=== PATIENT | male | born 1970 | race African-American/Black ===

== ENCOUNTER → 2021-01-24 | Outpatient (CLI) | payer MEDICAID ==
--- NOTE | 2021-01-24 17:30 | RAD ---
Bilateral lower extremity ABIs. INDICATION: Poor circulation of the extremities. TECHNIQUE AND FINDINGS: Bilateral lower extremity ABIs are performed. The NATHALIE on the right is 1.0 and on the left 1.1. These are normal. IMPRESSION: 1. Normal bilateral lower extremity ABIs. Electronically signed by: Paul Torres MD (01/24/2021 5:28 PM) [id number]
== END ==
LOC: US 14:39
PROVIDERS: ATTEND Internal Medicine
DX: R09.89 Other specified symptoms and signs involving the circulatory and respiratory systems (principal)
CPT/HCPCS: 93922

== ENCOUNTER → 2021-06-03 | Outpatient (CLI) | payer MEDICAID ==
[~2021-06-03] MED LIST: AMLO-187 PO; LEVE100020 PO
--- NOTE | 2021-06-03 14:19 | RAD ---
EXAMINATION: XR KNEE 3 VIEWS_RT CLINICAL HISTORY: Acute right knee pain. TECHNIQUE: XR KNEE 3 VIEWS_RT Number of Images/Views: 3 COMPARISON: None FINDINGS: Moderate medial compartment narrowing. Tricompartmental small marginal osteophytes. No acute fracture . Tiny infrapatellar enthesophyte. No significant joint effusion. IMPRESSION: Moderate degenerative changes right knee medial compartment. Electronically signed by: Thierry Weiner DO (06/03/2021 2:17 PM) [id number]
== END ==
LOC: RAD 11:06
PROVIDERS: ATTEND Internal Medicine
DX: M17.11 Unilateral primary osteoarthritis, right knee (principal); M25.761 Osteophyte, right knee; M25.861 Other specified joint disorders, right knee
CPT/HCPCS: 73562

== ENCOUNTER 2021-06-14 08:33 | Inpatient (IN) | payer MEDICAID ==
[~2021-06-14] VITALS: Ht 185.4 cm; Wt 119.0 kg
[2021-06-14] MEDS ORDERED: IPRATRPIUM/ALBUTEROL 0.5/2.5MG 3 ML NEBU. NEB ONE (09:15)
[2021-06-14] MEDS ORDERED: methylPREDNISolone SOD SUCC PF 125 MG/2 ML VIAL. IV ONE (09:15)
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
[2021-06-14] MEDS ORDERED: ALBUTEROL SULFATE 2.5 MG/3 ML NEBU. CONT NEB ONE (09:30)
--- NOTE | 2021-06-14 09:33 | RAD ---
EXAM: XR CHEST 2V 06/14/2021 9:20 AM CLINICAL INDICATION: Cough for 10 days COMPARISON: None TECHNIQUE: PA and lateral views of the chest FINDINGS: The heart and mediastinum are normal. Lungs are well-expanded and clear. No consolidatio n, pleural effusion, or pneumothorax. Pulmonary vascularity is normal. There is a 1.2 cm radiopaque density projecting over L1. Surgical clips in the upper abdomen. IMPRESSION: No acute cardiopulmonary abnormality. Electronically signed by: Layla Cabrera MD (06/14/2021 9:31 AM) [id number]
[2021-06-14 09:50] LABS: BASO % 0 % (0-3); EOS # 0.1 x10^3/uL (0.0-0.7); EOS % 2 % (0-3); HEMATOCRIT 43.1 % (39.0-53.0); HEMOGLOBIN 14.8 g/dL (13.0-17.5); LYMPH # 1.6 x10^3/uL (1.0-4.8); LYMPH % 23 % (24-48); MEAN CORPUSCULAR HEMOGLOBIN 32 pg (25-35); MEAN CORPUSCULAR HGB CONC 34 g/dL (31-37); MEAN CORPUSCULAR VOLUME 94 fL (79-100); MONO # 0.8 x10^3/uL (0.0-1.1); MONO % 11 % (0-9); NEUT # 4.4 x10^3/uL (1.8-7.7); NEUT % 64 % (31-73); PLATELET COUNT 263 x10^3/uL (140-400); RED CELL DISTRIBUTION WIDTH 14.4 % (11.5-14.5); WHITE BLOOD COUNT 6.9 x10^3/uL (4.0-11.0)
[2021-06-14 09:58] LABS: CALCIUM 9.2 mg/dL (8.5-10.1); CREATININE 1.1 mg/dL (0.7-1.3); GFR 85.7
[2021-06-14 10:06] LABS: INFLUENZA A PATIENT NEGATIVE (NEGATIVE); INFLUENZA B PATIENT NEGATIVE (NEGATIVE)
[2021-06-14] MEDS ORDERED: AZITHROMYCIN 500 MG in IV NORMAL SALINE 250ML 250 ML IV ONE (10:30)
[2021-06-14] MEDS ORDERED: ACETAMINOPHEN 325 MG TABLET. PO PRN (11:00)
[2021-06-14] MEDS: IV NORMAL SALINE 1000ML BAG 1,000 ML IV SCH ×2 (11:00→21:00)
[2021-06-14] MEDS ORDERED: IV NORMAL SALINE 1000ML BAG 1,000 ML IV ONE (11:00)
[2021-06-14] MEDS ORDERED: METOCLOPRAMIDE HCL 10 MG/2 ML VIAL. IVP ONE (11:30)
[2021-06-14] MEDS ORDERED: diphenhydrAMINE 50 MG/ML VIAL IVP ONE (11:30)
[2021-06-14 14:00] VITALS: BP 131/70
[2021-06-14] MEDS ORDERED: AMLO-187 PO (17:25)
[2021-06-14] MEDS ORDERED: LEVE100020 PO (17:25)
--- NOTE | 2021-06-14 17:42 | PDOC ---
PULMONARY PROGRESS NOTES DATE: 06/14/21 TIME: 17:41 Vitals Vital Signs Date Time Temp Pulse Resp B/P (MAP) Pulse Ox O2 Delivery O2 Flow Rate FiO2 06/14/21 15:44 Room Air 06/14/21 14:00 98.2 89 20 131/70 (90) 93 98.2 Labs Laboratory Tests Test 06/14/21 09:30 White Blood Count 6.9 x10^3/uL (4.0-11.0) Red Blood Count 4.60 x10^6/uL (4.30-5.70) Hemoglobin 14.8 g/dL (13.0-17.5) Hematocrit 43.1 % (39.0-53.0) Mean Corpuscular Volume 94 fL (79-100) Mean Corpuscular Hemoglobin 32 pg (25-35) Mean Corpuscular Hemoglobin Concent 34 g/dL (31-37) Red Cell Distribution Width 14.4 % (11.5-14.5) Platelet Count 263 x10^3/uL (140-400) Neutrophils (%) (Auto) 64 % (31-73) Lymphocytes (%) (Auto) 23 % (24-48) Monocytes (%) (Auto) 11 % (0-9) Eosinophils (%) (Auto) 2 % (0-3) Basophils (%) (Auto) 0 % (0-3) Neutrophils # (Auto) 4.4 x10^3/uL (1.8-7.7) Lymphocytes # (Auto) 1.6 x10^3/uL (1.0-4.8) Monocytes # (Auto) 0.8 x10^3/uL (0.0-1.1) Eosinophils # (Auto) 0.1 x10^3/uL (0.0-0.7) Basophils # (Auto) 0.0 x10^3/uL (0.0-0.2) Sodium Level 137 mmol/L (136-145) Potassium Level 3.0 mmol/L (3.5-5.1) Chloride Level 96 mmol/L (98-107) Carbon Dioxide Level 30 mmol/L (21-32) Anion Gap 11 (6-14) Blood Urea Nitrogen 12 mg/dL (8-26) Creatinine 1.1 mg/dL (0.7-1.3) Estimated GFR (Cockcroft-Gault) 85.7 Glucose Level 135 mg/dL (70-99) Calcium Level 9.2 mg/dL (8.5-10.1) Influenza Type A Antigen Negative (NEGATIVE) Influenza Type B Antigen Negative (NEGATIVE) SARS-CoV-2 Antigen (Rapid) Positive (NEGATIVE) Laboratory Tests Test 06/14/21 09:30 White Blood Count 6.9 x10^3/uL (4.0-11.0) Red Blood Count 4.60 x10^6/uL (4.30-5.70) Hemoglobin 14.8 g/dL (13.0-17.5) Hematocrit 43.1 % (39.0-53.0) Mean Corpuscular Volume 94 fL (79-100) Mean Corpuscular Hemoglobin 32 pg (25-35) Mean Corpuscular Hemoglobin Concent 34 g/dL (31-37) Red Cell Distribution Width 14.4 % (11.5-14.5) Platelet Count 263 x10^3/uL (140-400) Neutrophils (%) (Auto) 64 % (31-73) Lymphocytes (%) (Auto) 23 % (24-48) Monocytes (%) (Auto) 11 % (0-9) Eosinophils (%) (Auto) 2 % (0-3) Basophils (%) (Auto) 0 % (0-3) Neutrophils # (Auto) 4.4 x10^3/uL (1.8-7.7) Lymphocytes # (Auto) 1.6 x10^3/uL (1.0-4.8) Monocytes # (Auto) 0.8 x10^3/uL (0.0-1.1) Eosinophils # (Auto) 0.1 x10^3/uL (0.0-0.7) Basophils # (Auto) 0.0 x10^3/uL (0.0-0.2) Sodium Level 137 mmol/L (136-145) Potassium Level 3.0 mmol/L (3.5-5.1) Chloride Level 96 mmol/L (98-107) Carbon Dioxide Level 30 mmol/L (21-32) Anion Gap 11 (6-14) Blood Urea Nitrogen 12 mg/dL (8-26) Creatinine 1.1 mg/dL (0.7-1.3) Estimated GFR (Cockcroft-Gault) 85.7 Glucose Level 135 mg/dL (70-99) Calcium Level 9.2 mg/dL (8.5-10.1) Influenza Type A Antigen Negative (NEGATIVE) Influenza Type B Antigen Negative (NEGATIVE) SARS-CoV-2 Antigen (Rapid) Positive (NEGATIVE) Medications Active Scripts Medications Dose Route/Sig Max Daily Dose Days Date Category Amlodipine Besylate 10 Mg Tablet 10 Mg PO DAILY 06/14/21 Reported Keppra (Levetiracetam) 1,000 Mg Tablet 1 Tab PO BID 30 06/14/21 Reported Impression . Reviewed, x-ray reviewed, will check PCR for COVID Full consult to be dictated MICHELLE CHAN MD Jun 14, 2021 17:42
[2021-06-14] MEDS ORDERED: ALBUTEROL SULFATE 8GM INHALER. INH PRN (18:00)
[2021-06-14 19:00] VITALS: BP 121/81
[2021-06-14] MEDS: ALBUTEROL SULFATE 8GM INHALER. INH SCH (20:57)
[2021-06-14] MEDS: guaiFENesin/CODEINE 100mg/10mg 5 ML LIQUID PO PRN (20:57)
[2021-06-14] MEDS: levETIRAcetam 500 MG TABLET PO SCH (20:57)
[2021-06-14] MEDS: IBUPROFEN 400 MG TABLET. PO PRN (20:58)
[2021-06-14 22:41] VITALS: BP 142/93
[2021-06-15] MEDS: ALBUTEROL SULFATE 8GM INHALER. INH SCH ×7 (00:31→23:55)
[2021-06-15 03:00] VITALS: BP 123/81
[2021-06-15] MEDS: IV NORMAL SALINE 1000ML BAG 1,000 ML IV SCH (07:53)
[2021-06-15] MEDS: DEXAMETHASONE SOD PHOS 4 MG/ML VIAL IVP SCH (07:54)
[2021-06-15] MEDS: levETIRAcetam 500 MG TABLET PO SCH ×2 (07:55→20:32)
[2021-06-15 08:10] VITALS: BP 175/92
[2021-06-15] MEDS: guaiFENesin/CODEINE 100mg/10mg 5 ML LIQUID PO PRN ×3 (08:12→20:31)
[2021-06-15] MEDS: POTASSIUM CHLORIDE 10 MEQ TABLET.ER. PO SCH ×3 (08:47→17:11)
--- NOTE | 2021-06-15 09:44 | PDOC ---
PULMONARY PROGRESS NOTES DATE: 06/15/21 TIME: 09:44 Vitals Vital Signs Date Time Temp Pulse Resp B/P (MAP) Pulse Ox O2 Delivery O2 Flow Rate FiO2 06/15/21 08:10 97.8 92 20 175/92 (119) 98 Room Air 97.8 Labs Laboratory Tests Test 06/14/21 09:30 White Blood Count 6.9 x10^3/uL (4.0-11.0) Red Blood Count 4.60 x10^6/uL (4.30-5.70) Hemoglobin 14.8 g/dL (13.0-17.5) Hematocrit 43.1 % (39.0-53.0) Mean Corpuscular Volume 94 fL (79-100) Mean Corpuscular Hemoglobin 32 pg (25-35) Mean Corpuscular Hemoglobin Concent 34 g/dL (31-37) Red Cell Distribution Width 14.4 % (11.5-14.5) Platelet Count 263 x10^3/uL (140-400) Neutrophils (%) (Auto) 64 % (31-73) Lymphocytes (%) (Auto) 23 % (24-48) Monocytes (%) (Auto) 11 % (0-9) Eosinophils (%) (Auto) 2 % (0-3) Basophils (%) (Auto) 0 % (0-3) Neutrophils # (Auto) 4.4 x10^3/uL (1.8-7.7) Lymphocytes # (Auto) 1.6 x10^3/uL (1.0-4.8) Monocytes # (Auto) 0.8 x10^3/uL (0.0-1.1) Eosinophils # (Auto) 0.1 x10^3/uL (0.0-0.7) Basophils # (Auto) 0.0 x10^3/uL (0.0-0.2) Sodium Level 137 mmol/L (136-145) Potassium Level 3.0 mmol/L (3.5-5.1) Chloride Level 96 mmol/L (98-107) Carbon Dioxide Level 30 mmol/L (21-32) Anion Gap 11 (6-14) Blood Urea Nitrogen 12 mg/dL (8-26) Creatinine 1.1 mg/dL (0.7-1.3) Estimated GFR (Cockcroft-Gault) 85.7 Glucose Level 135 mg/dL (70-99) Calcium Level 9.2 mg/dL (8.5-10.1) Influenza Type A Antigen Negative (NEGATIVE) Influenza Type B Antigen Negative (NEGATIVE) SARS-CoV-2 Antigen (Rapid) Positive (NEGATIVE) Medications Active Scripts Medications Dose Route/Sig Max Daily Dose Days Date Category Amlodipine Besylate 10 Mg Tablet 10 Mg PO DAILY 06/14/21 Reported Keppra (Levetiracetam) 1,000 Mg Tablet 1 Tab PO BID 30 06/14/21 Reported Impression . Reviewed, x-ray reviewed, will check PCR for COVID Dictated Acute exacerbation of asthma Doubt COVID-19 MICHELLE CHAN MD Jun 15, 2021 09:44
[2021-06-15 11:00] VITALS: BP 160/79
--- NOTE | 2021-06-15 11:22 | NUR ---
SS following for discharge planning. SS reviewed pt chart and discussed with pt RN. Pt is from home and is currently on room air. COVID19 positive. Pt on IV Decadron. Pulmonology consulted. SS will continue to follow for discharge planning.
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
[2021-06-15] MEDS: CETIRIZINE HCL 10 MG TABLET. PO SCH (14:10)
[2021-06-15] MEDS: FLUTICASONE 50MCG/NASAL SPRAY 16GM BOTTLE. NS SCH (14:10)
[2021-06-15 15:00] VITALS: BP 155/90
[2021-06-15 19:00] VITALS: BP 151/95
[2021-06-15] MEDS: IBUPROFEN 400 MG TABLET. PO PRN (20:32)
[2021-06-15] MEDS ORDERED: MONTELUKAST SODIUM 10 MG TABLET. PO SCH (21:00)
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
[2021-06-15 23:05] VITALS: BP 159/99
[2021-06-16] MEDS: guaiFENesin/CODEINE 100mg/10mg 5 ML LIQUID PO PRN ×2 (02:40→08:42)
[2021-06-16] MEDS: IBUPROFEN 400 MG TABLET. PO PRN (02:40)
[2021-06-16 03:10] VITALS: BP 150/86
[2021-06-16] MEDS: ALBUTEROL SULFATE 8GM INHALER. INH SCH ×2 (04:00→08:10)
[2021-06-16 07:00] VITALS: BP 177/100
[2021-06-16] MEDS: DEXAMETHASONE SOD PHOS 4 MG/ML VIAL IVP SCH (08:08)
[2021-06-16 08:09] VITALS: BP 177/100
[2021-06-16] MEDS: levETIRAcetam 500 MG TABLET PO SCH (08:09)
[2021-06-16] MEDS: CETIRIZINE HCL 10 MG TABLET. PO SCH (08:09)
[2021-06-16] MEDS: POTASSIUM CHLORIDE 10 MEQ TABLET.ER. PO SCH (08:09)
[2021-06-16] MEDS: FLUTICASONE 50MCG/NASAL SPRAY 16GM BOTTLE. NS SCH (08:42)
--- NOTE | 2021-06-16 09:30 | PDOC ---
PULMONARY PROGRESS NOTES DATE: 06/16/21 TIME: 09:30 Vitals Vital Signs Date Time Temp Pulse Resp B/P (MAP) Pulse Ox O2 Delivery O2 Flow Rate FiO2 06/16/21 08:09 89 177/100 06/16/21 07:00 97.5 18 95 97.5 06/16/21 03:10 Room Air Medications Active Scripts Medications Dose Route/Sig Max Daily Dose Days Date Category Amlodipine Besylate 10 Mg Tablet 10 Mg PO DAILY 06/14/21 Reported Keppra (Levetiracetam) 1,000 Mg Tablet 1 Tab PO BID 30 06/14/21 Reported Impression . Reviewed, x-ray reviewed, will check PCR for COVID Dictated Acute exacerbation of asthma Doubt COVID-19 MICHELLE CHAN MD Jun 16, 2021 09:30
--- NOTE | 2021-06-16 09:58 | NUR ---
SS following up with discharge planning. SS reviewed pt chart and discussed with pt RN. Pt is currently on room air. COVID19 positive. Pt on IV Decadron. Discharge order on the chart for home with self care.
--- NOTE | 2021-06-16 10:16 | NUR ---
Discharge Note: Patient was discharged home with self care. Patients significant other at the bedside at the time of discharge education. Patients IV was discontinued without any complications per FREDI. Patient received discharge summary/instructions, follow-ups, prescription and educational material. Patient did not have any further questions or concerns. Patient was taken down to the main entrance via wheelchair with all personal belongings accompanied by FREDI Mota, where his significant other was waiting for him to take him home.
--- NOTE | 2021-06-16 18:44 | DS ---
DATE OF DISCHARGE: 06/16/2021 HOSPITAL SUMMARY: A 50-year-old black male with known asthma and seasonal allergies and mild tobacco use, came in with coughing or wheezing. His rapid COVID test was positive and PCR is pending. CBC, chemistry profile and chest x-ray were unremarkable. Oxygen saturations were good. He was treated with IV Decadron and respiratory treatments and is feeling better at this time comfortable to be followed as an outpatient. FINAL DIAGNOSES: 1. Acute exacerbation of asthma. 2. COVID positive test, PCR test pending. OPERATIONS, PROCEDURES AND COMPLICATIONS: None. CONSULTATION: Dr. Loco. DISPOSITION: Take a prednisone taper over 9 days. He will continue DuoNeb treatments at home along with his Advair that he uses twice a day and switch to Jewell from Claritin. Continue Flonase and we will add Singulair 10 mg daily. Potassium was low at 3.0 and it has been chronically low for no known reason, so we will add potassium 10 mEq once daily and follow potassium levels. He may have an underlying renal disorder that allows for potassium wasting as a source for this as there is no evidence of hyperaldosteronism present. Aldosterone level might be checked in the future as well. Complete tobacco avoidance was encouraged and appropriate COVID vaccination recommended in 3 months as he has declined this in the past so far despite his high risk status. KAPIL/EVAN/SYED DR: KAPIL/alison TID: [id number]
== END 2021-06-16 10:00 | disposition home or self-care (01) | DRG 178 ==
LOC: ER 08:33 → ED HOLD 10:58 → 5 NORTH 13:10
PROVIDERS: ADMIT Family Medicine; ATTEND Family Medicine
DX: U07.1 COVID-19 (principal); J45.51 Severe persistent asthma with (acute) exacerbation; J20.8 Acute bronchitis due to other specified organisms; F17.210 Nicotine dependence, cigarettes, uncomplicated; I10 Essential (primary) hypertension; J01.40 Acute pansinusitis, unspecified; Z87.820 Personal history of traumatic brain injury
CPT/HCPCS: 36415; 71046; 80048; 85025; 87040; 87428; 94644; 96365; 96375; J0456; J1100; J2930; J7030; J7050; 99285-25; G0378; J7613